=== PATIENT | male | born 1970 | race Two or more races ===

== ENCOUNTER 2023-02-08 21:50 | Emergency (ER) | payer OTHER ==
[~2023-02-08] VITALS: Ht 170.2 cm; Wt 90.3 kg
[2023-02-08] MEDS ORDERED: [UNRECOGNIZED DRUG - MIXTURE] (22:12)
[2023-02-08] MEDS ORDERED: TESALON (22:13)
[2023-02-09] MEDS ORDERED: ZYNCOF 20-400120 ML PO (04:13)
[2023-02-09] MEDS ORDERED: BUDESONIDE0.5 MG/2 M IH (04:13)
[2023-02-09] MEDS ORDERED: ZITHROMAX500 MG PO (04:13)
== END 2023-02-09 04:21 ==
LOC: ER 21:50
DX: J40 Bronchitis, not specified as acute or chronic (principal); Z20.822 Contact with and (suspected) exposure to COVID-19; R06.2 Wheezing; I10 Essential (primary) hypertension; E11.9 Type 2 diabetes mellitus without complications

== ENCOUNTER 2023-08-09 14:47 | Inpatient (IN) | payer OTHER ==
[~2023-08-09] VITALS: Ht 170.2 cm; Wt 94.3 kg
[~2023-08-09 14:47] MED LIST: BUDESONIDE0.5 MG/2 M IH; TESALON; ZITHROMAX500 MG PO; ZYNCOF 20-400120 ML PO; [UNRECOGNIZED DRUG - MIXTURE]
[2023-08-09 17:07] LABS: HEMATOCRIT 40.4 % (39.0-48.0); HEMOGLOBIN 13.6 g/dL (13-16.00); MEAN CELL VOLUME 85.9 fL (80.0-100.00); MEAN CORPUSCULAR HEMOGLOBIN 28.9 pg (27.00-32.0); MEAN CORPUSCULAR HGB CONC 33.7 g/dl (32.0-36.0); PLATELET COUNT 306 K/uL (150-450); RED BLOOD COUNT 4.71 M/uL (4.00-6.00); RED CELL DISTRIBUTION WIDTH 13.4 % (11.5-14.5)
[2023-08-09 17:21] LABS: ALBUMIN 4.1 gm/dL (3.4-5.0); BILIRUBIN TOTAL 0.54 mg/dL (0.3-1.2); CALCIUM 9.2 mg/dL (8.5-10.1); CREATININE SERUM 1.5 mg/dL (0.70-1.30); GFR 48.95; GLOBULINA 3.3 G/DL (2.4-3.5); POTASSIUM 3.74 mEq/L (3.5-5.1); TOTAL PROTEIN 7.4 gm/dL (6.4-8.2)
[2023-08-09 19:55] LABS: ABG PH 7.471 (7.35-7.45); ABG PO2 121.4 mmHg (80-100); ABG pCO2 26.7 mmHg (35-45); BASE EXCESS -2.9 mmol/l; BICARBONATE 19.1 mmol/l (23-25); SaO2 98.9 %; Tco2 19.9 mmol/l; allen test SATISFACTORY; o2 21 %; puncture site RADIAL LEFT
[2023-08-10 00:16] LABS: PH,URINE 5.5 (5.0-8.0); URINE APPEARANCE Clear; URINE BILIRRUBIN Negative (NEGATIVE); URINE BLOOD Negative; URINE COLOR Yellow; URINE LEUKOCYTE Negative; URINE NITRATE Negative; URINE PROTEIN Negative (NEGATIVE); URINE UROBILINOGEN 0.2 E.U./dl
[2023-08-10 00:29] LABS: URINE BACTERIA 2.5 uL (0.0-1933); URINE EPITHELIAL CELLS 0.3 uL (0.0-38.8); URINE GLUCOSE >=1000 MG/DL (NEGATIVE); URINE RBC 0.2 uL (0.0-20.8); URINE WBC 0.7 uL (0.0-23.2)
[2023-08-10 00:35] LABS: INR 1.04; PROTHROMBIN TIME 10.9 SECONDS (9.0-11.5)
[2023-08-10 00:37] LABS: D DIMER 0.2 MG/L
[2023-08-10 12:00] LABS: HEMATOCRIT 35.9 % (39.0-48.0); MEAN CELL VOLUME 86.3 fL (80.0-100.00); MEAN CORPUSCULAR HEMOGLOBIN 28.9 pg (27.00-32.0); MEAN CORPUSCULAR HGB CONC 33.5 g/dl (32.0-36.0); PLATELET COUNT 277 K/uL (150-450); RED BLOOD COUNT 4.16 M/uL (4.00-6.00); RED CELL DISTRIBUTION WIDTH 13.5 % (11.5-14.5)
[2023-08-12 06:54] LABS: HEMATOCRIT 37.1 % (39.0-48.0); HEMOGLOBIN 12.3 g/dL (13-16.00); MEAN CORPUSCULAR HEMOGLOBIN 28.6 pg (27.00-32.0); MEAN CORPUSCULAR HGB CONC 33.3 g/dl (32.0-36.0); PLATELET COUNT 283 K/uL (150-450); RED BLOOD COUNT 4.31 M/uL (4.00-6.00); RED CELL DISTRIBUTION WIDTH 13.4 % (11.5-14.5)
[2023-08-12 07:34] LABS: ALBUMIN 3.3 gm/dL (3.4-5.0); BILIRUBIN TOTAL 0.28 mg/dL (0.3-1.2); CALCIUM 8.5 mg/dL (8.5-10.1); CREATININE SERUM 1.01 mg/dL (0.70-1.30); GFR 77.27; GLOBULINA 2.8 G/DL (2.4-3.5); POTASSIUM 4.36 mEq/L (3.5-5.1); TOTAL PROTEIN 6.1 gm/dL (6.4-8.2)
== END 2023-08-12 16:26 | disposition home or self-care (01) | DRG 194 ==
LOC: ER 14:47 → MEDI 23:17
PROVIDERS: General Practice; Internal Medicine Infectious Disease; Internal Medicine Nephrology; ADMIT Specialist; ATTEND Specialist
PROC: BB24YZZ Computerized Tomography (CT Scan) of Bilateral Lungs using Other Contrast (ICD-10-PCS; principal; 2023-08-09)
PROC: 3E0F7GC Introduction of Other Therapeutic Substance into Respiratory Tract, Via Natural or Artificial Opening (ICD-10-PCS; 2023-08-09)
DX: J18.8 Other pneumonia, unspecified organism (principal); N17.9 Acute kidney failure, unspecified; I12.9 Hypertensive chronic kidney disease with stage 1 through stage 4 chronic kidney disease, or unspecified chronic kidney disease; E11.22 Type 2 diabetes mellitus with diabetic chronic kidney disease; N18.9 Chronic kidney disease, unspecified; G47.33 Obstructive sleep apnea (adult) (pediatric); Z79.4 Long term (current) use of insulin

== ENCOUNTER → 2023-10-17 | Emergency (ER) | payer OTHER ==
[~2023-10-17] VITALS: Ht 172.7 cm; Wt 95.3 kg
== END | disposition left against medical advice (07) ==
LOC: ER 18:20
DX: Z53.21 Procedure and treatment not carried out due to patient leaving prior to being seen by health care provider (principal)

== ENCOUNTER 2023-10-20 14:27 | Emergency (ER) | payer OTHER ==
[~2023-10-20] VITALS: Ht 172.7 cm; Wt 81.6 kg
[2023-10-20] MEDS ORDERED: HYDROCODONE/CHLORPHEN P-STIREX 5 ML ML PO ONE (18:00)
[2023-10-20] MEDS ORDERED: METHYLPREDNISOLONE SOD SUCC 125 MG VIAL IV ONE (18:00)
[2023-10-20] MEDS ORDERED: ALBUTEROL SULFATE 3 ML/2.5 MG AMPUL.NEB IH SCH (18:00)
[2023-10-20] MEDS ORDERED: IPRATROPIUM BROMIDE 0.5 MG/2.5 ML AMPUL.NEB IH SCH (18:00)
[2023-10-20 18:25] LABS: HEMATOCRIT 42.9 % (39.0-48.0); HEMOGLOBIN 14.1 g/dL (13-16.00); MEAN CELL VOLUME 87.6 fL (80.0-100.00); MEAN CORPUSCULAR HEMOGLOBIN 28.8 pg (27.00-32.0); MEAN CORPUSCULAR HGB CONC 32.9 g/dl (32.0-36.0); PLATELET COUNT 303 K/uL (150-450); RED BLOOD COUNT 4.89 M/uL (4.00-6.00); RED CELL DISTRIBUTION WIDTH 13.8 % (11.5-14.5)
[2023-10-20] MEDS ORDERED: IPRATROPIUM/ALBUTEROL SULFATE 3 ML AMPUL.NEB IH SCH (18:45)
== END 2023-10-20 23:01 | disposition home or self-care (01) ==
LOC: ER 14:27
PROVIDERS: Emergency Medicine
DX: R05.8 Other specified cough (principal); J06.9 Acute upper respiratory infection, unspecified; G47.39 Other sleep apnea; I10 Essential (primary) hypertension; Z20.822 Contact with and (suspected) exposure to COVID-19

== ENCOUNTER 2023-10-25 09:26 | Emergency (ER) | payer OTHER ==
[~2023-10-25] VITALS: Ht 172.7 cm; Wt 95.7 kg
[2023-10-25] MEDS ORDERED: ZESTRIL5 MG PO (09:47)
[2023-10-25] MEDS ORDERED: GLUMETZA500 MG PO (09:47)
[2023-10-25] MEDS ORDERED: KETOROLAC TROMETHAMINE 60 MG VIAL IM STA (10:20)
[2023-10-25] MEDS ORDERED: HYDROCODONE/CHLORPHEN P-STIREX 5 ML ML PO STA (10:20)
== END 2023-10-25 12:13 | disposition home or self-care (01) ==
LOC: ER 09:26
DX: M94.0 Chondrocostal junction syndrome [Tietze] (principal); J40 Bronchitis, not specified as acute or chronic; I10 Essential (primary) hypertension; E11.9 Type 2 diabetes mellitus without complications; Z79.84 Long term (current) use of oral hypoglycemic drugs

== ENCOUNTER 2023-11-15 18:01 | Emergency (ER) | payer OTHER ==
[~2023-11-15] VITALS: Ht 172.7 cm; Wt 95.7 kg
[~2023-11-15 18:01] MED LIST changes: +GLUMETZA500 MG PO; +ZESTRIL5 MG PO
[2023-11-15] MEDS ORDERED: GUAIFENESIN/DEXTROMETHORPHAN 100 MG/5 ML ML PO STA (22:08)
[2023-11-15] MEDS ORDERED: METHYLPREDNISOLONE SOD SUCC 125 MG VIAL IV STA (22:09)
[2023-11-15] MEDS ORDERED: IPRATROPIUM BROMIDE 0.5 MG/2.5 ML AMPUL.NEB IH SCH (22:15)
[2023-11-15] MEDS ORDERED: LEVALBUTEROL HCL 1.25 MG/3 ML SOLUTION IH SCH (22:15)
[2023-11-15 23:21] LABS: ABG PH 7.398 (7.35-7.45); ABG PO2 97.4 mmHg (80-100); ABG pCO2 32.7 mmHg (35-45); BICARBONATE 19.7 mmol/l (23-25); Tco2 20.7 mmol/l
[2023-11-15 23:22] LABS: BASE EXCESS -4.1 mmol/l; SaO2 97.4 %; o2 21 %; puncture site RADIAL RIGHT
[2023-11-15 23:23] LABS: allen test SATISFACTORY
[2023-11-15 23:51] LABS: ALBUMIN 3.9 gm/dL (3.4-5.0); BILIRUBIN TOTAL 0.49 mg/dL (0.3-1.2); CALCIUM 9.3 mg/dL (8.5-10.1); CREATININE SERUM 1.43 mg/dL (0.70-1.30); GFR 51.73; GLOBULINA 3.6 G/DL (2.4-3.5); POTASSIUM 3.57 mEq/L (3.5-5.1); TOTAL PROTEIN 7.5 gm/dL (6.4-8.2)
[2023-11-16 00:28] LABS: HEMATOCRIT 39.6 % (39.0-48.0); HEMOGLOBIN 13.2 g/dL (13-16.00); MEAN CELL VOLUME 86.2 fL (80.0-100.00); MEAN CORPUSCULAR HEMOGLOBIN 28.8 pg (27.00-32.0); MEAN CORPUSCULAR HGB CONC 33.4 g/dl (32.0-36.0); PLATELET COUNT 283 K/uL (150-450); RED BLOOD COUNT 4.59 M/uL (4.00-6.00); RED CELL DISTRIBUTION WIDTH 13.5 % (11.5-14.5)
[2023-11-16] MEDS ORDERED: METHYLPREDNISOLONE SOD SUCC 125 MG VIAL IV STA (02:14)
[2023-11-16] MEDS ORDERED: LEVALBUTEROL HCL 1.25 MG/3 ML SOLUTION IH SCH (02:15)
[2023-11-16] MEDS ORDERED: PAXLOVID 300-11 EAC1 PO (04:16)
[2023-11-16] MEDS ORDERED: XOPENEX CO1.25 MG/0. IH (04:16)
== END 2023-11-16 04:24 | disposition home or self-care (01) ==
LOC: ER 18:01
PROVIDERS: General Practice
DX: U07.1 COVID-19 (principal); J98.01 Acute bronchospasm
CPT/HCPCS: 36415; 82803; 94640; 99282; J0744